=== PATIENT | female | born 1960 | race Caucasian/White ===

== ENCOUNTER 2019-12-20 23:30 | Emergency (ER) | payer OTHER ==
[~2019-12-20] VITALS: Ht 162.6 cm; Wt 128.4 kg
[2019-12-20] MEDS ORDERED: LASIX 20 MG TAB20 MG PO (23:38)
[2019-12-20] MEDS ORDERED: PROAIR HFA8.5 GM INH (23:38)
[2019-12-20] MEDS ORDERED: LIPITOR10 MG PO (23:39)
[2019-12-20] MEDS ORDERED: ASA81BEC PO (23:39)
[2019-12-20] MEDS ORDERED: LISINOPRIL20 MG PO (23:39)
[2019-12-20] MEDS ORDERED: MUCINEX600 MG PO (23:40)
[2019-12-21 00:56] VITALS: BP 144/69
== END 2019-12-21 00:59 | disposition home or self-care (01) ==
LOC: M.ERS 23:30
DX: R13.10 Dysphagia, unspecified (principal)